=== PATIENT | male | born 2000 | race Caucasian/White ===

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

== ENCOUNTER 2019-02-02 11:45 | Emergency (ER) | payer OTHER ==
[2019-02-02 12:00] VITALS: BP 124/75; PULSE 74; RESP 18; TEMP 97.8
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
== END 2019-02-02 13:44 | disposition home or self-care (01) ==
LOC: EC 11:45
DX: S30.0XXA Contusion of lower back and pelvis, initial encounter (principal); Z88.8 Allergy status to other drugs, medicaments and biological substances; V86.09XA Driver of other special all-terrain or other off-road motor vehicle injured in traffic accident, initial encounter; Y92.410 Unspecified street and highway as the place of occurrence of the external cause
CPT/HCPCS: 99284

== ENCOUNTER → 2020-11-22 | Outpatient (CLI) | payer OTHER | END | disposition home or self-care (01) | LOC: RADMRIMAIN 18:44 | PROVIDERS: ATTEND Orthopaedic Surgery | DX: Z53.9 Procedure and treatment not carried out, unspecified reason (principal) ==

== ENCOUNTER → 2020-11-22 | Outpatient (CLI) | payer OTHER ==
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
--- NOTE | 2020-11-22 21:15 | MR ---
EXAMINATION TYPE: MR lumbar spine wo con DATE OF EXAM: 11/22/2020 COMPARISON: None HISTORY: Low back pain for 1 year that goes down left and right leg. Lumbar vertebra have normal alignment. Posterior elements are intact. The disc spaces are fairly norm al. There is small posterior endplate spurring at L1-2. The neural foramina appear widely patent. The re is no compression fracture. There is no spinal stenosis. I see no bony destructive process. The sa croiliac joints are not well visualized. There is no lumbar paraspinal mass. IMPRESSION: Minimal posterior disc bulging at T11-12 and T12-L1. No spinal stenosis. No fracture. No lumbar disc herniation.
== END | disposition home or self-care (01) ==
LOC: RADCTMAIN 19:00
PROVIDERS: ATTEND Orthopaedic Surgery
DX: M51.25 Other intervertebral disc displacement, thoracolumbar region (principal); S39.92XA Unspecified injury of lower back, initial encounter
CPT/HCPCS: 72131; 72148